=== PATIENT | female | born 2000 | race Caucasian/White ===

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

== ENCOUNTER 2019-01-24 02:32 | Emergency (ER) | payer SELFPAY, OTHER ==
[2019-01-24] MEDS: SOD CHLORIDE 0.9% 500 ML IV (03:02)
[2019-01-24 03:03] LABS: ADD MAN DIFF? NO
[2019-01-24 03:05] LABS: BASOPHIL # 0.1 10^3/ul (0.0-0.1); BASOPHILS % 0.3 % (0.0-2.0); EOSINOPHILS # 0.1 10^3/ul (0.0-0.5); EOSINOPHILS % 0.4 % (0.0-7.0); HEMATOCRIT 37.6 % (37.0-47.0); HEMOGLOBIN 12.7 g/dl (12.0-16.0); LYMPHOCYTES # 2.7 10^3/ul (0.8-2.9); LYMPHOCYTES % 13.6 % (18.0-55.0); MEAN CORPUSCULAR HEMOGLOBIN 29.3 pg (29.0-33.0); MEAN CORPUSCULAR HGB CONC 33.8 g/dl (32.0-37.0); MEAN CORPUSCULAR VOLUME 86.6 fl (72.0-104.0); MEAN PLATELET VOLUME 9.6 fl (7.4-10.4); NEUTROPHIL # 16.1 10^3/ul (1.6-7.5); NEUTROPHILS % 80.1 % (30.0-74.0); PLATELET COUNT 262 10^3/UL (140-415); RED BLOOD COUNT 4.34 10^6/ul (4.20-5.40); RED CELL DISTRIBUTION WIDTH 11.8 % (11.5-14.5)
[2019-01-24 03:05] LABS: WHITE BLOOD COUNT 20.1 10^3/ul (4.8-10.8)
[2019-01-24 03:32] LABS: ETHANOL < 10.0 mg/dl (0-0)
[2019-01-24] MEDS: SOD CHLORIDE 0.9% 1,000 ML IV (04:04)
[2019-01-24] MEDS: KETOROLAC 30 MG INJ IV (04:32)
== END 2019-01-24 05:56 | disposition home or self-care (01) ==
LOC: E/R 02:32
DX: N92.0 Excessive and frequent menstruation with regular cycle (principal); R55 Syncope and collapse; D72.829 Elevated white blood cell count, unspecified
CPT/HCPCS: 36415; 71045; 80307; 81025; 82962; 85025; 93005; 96361; 96374; 99285-25

== ENCOUNTER 2019-05-18 17:50 | Emergency (ER) | payer SELFPAY ==
[2019-05-18] MEDS: KETOROLAC 30 MG INJ IM (18:34)
[2019-05-18] MEDS: DEXAMETHASONE 10 MG/ML 1 ML INJ IM (18:34)
== END 2019-05-18 19:03 | disposition home or self-care (01) ==
LOC: FTE 19:03
DX: J02.9 Acute pharyngitis, unspecified (principal)
CPT/HCPCS: 81025; 96372; 99284-25

== ENCOUNTER 2019-05-20 03:16 | Inpatient (IN) | payer MEDICAID ==
[2019-05-20 03:37] LABS: ADD MAN DIFF? NO
[2019-05-20 03:39] LABS: BASOPHILS % 0.2 % (0.0-2.0); EOSINOPHILS % 0.1 % (0.0-7.0); HEMATOCRIT 40.9 % (37.0-47.0); HEMOGLOBIN 13.3 g/dl (12.0-16.0); LYMPHOCYTES # 2.6 10^3/ul (0.8-2.9); LYMPHOCYTES % 17.8 % (18.0-55.0); MEAN CORPUSCULAR HEMOGLOBIN 26.5 pg (29.0-33.0); MEAN CORPUSCULAR HGB CONC 32.5 g/dl (32.0-37.0); MEAN CORPUSCULAR VOLUME 81.5 fl (72.0-104.0); MEAN PLATELET VOLUME 9.5 fl (7.4-10.4); MONOCYTES % 6.9 % (0.0-13.0); NEUTROPHIL # 10.9 10^3/ul (1.6-7.5); NEUTROPHILS % 74.5 % (30.0-74.0); PLATELET COUNT 305 10^3/UL (140-415); RED BLOOD COUNT 5.02 10^6/ul (4.20-5.40); RED CELL DISTRIBUTION WIDTH 13.2 % (11.5-14.5)
[2019-05-20 03:39] LABS: WHITE BLOOD COUNT 14.6 10^3/ul (4.8-10.8)
[2019-05-20] MEDS: SODIUM CHLORIDE 0.9% 1L BAG IV* (03:40)
[2019-05-20] MEDS: KETOROLAC 15 MG INJ IV ×2 (03:40→03:57)
[2019-05-20] MEDS: DEXAMETHASONE 10 MG/ML 1 ML INJ IV ×4 (03:40→20:22)
[2019-05-20 03:48] LABS: URINE PH (Dip) POC 6.5 (5.0-8.5)
[2019-05-20 03:48] LABS: URINE BLOOD (Dip) POC 1+ (NEGATIVE); URINE GLUCOSE (Dip) POC Negative (NEGATIVE); URINE KETONES (Dip) POC Negative (NEGATIVE); URINE LEUKOCYTE EST (Dip) POC Trace (NEGATIVE); URINE NITRITE (Dip) POC Negative (NEGATIVE); URINE TOTAL PROTEIN POC Trace (NEGATIVE)
[2019-05-20] MEDS: AMPICILLIN/SULB 3 GM/NS (PMX) 100 ML IVPB ×3 (03:49→17:45)
[2019-05-20 03:56] LABS: ALANINE AMINOTRANSFERASE 19 IU/L (13-69); ALBUMIN 4.4 g/dl (3.3-4.9); ALBUMIN/GLOBULIN RATIO 0.86; ALKALINE PHOSPHATASE 70 IU/L (42-121); ANION GAP 12 (5-13); ASPARTATE AMINO TRANSFERASE 23 IU/L (15-46); BILIRUBIN,INDIRECT 0.7 mg/dl (0-1.1); BILIRUBIN,TOTAL 0.7 mg/dl (0.2-1.3); BLOOD UREA NITROGEN 14 mg/dl (7-20); CALCIUM 9.9 mg/dl (8.4-10.2); CARBON DIOXIDE 28 mmol/L (21-31); CHLORIDE 99 mmol/L (97-110); CREATININE 0.67 mg/dl (0.44-1.00); Estimated GFR > 60 mL/min (>60); GLUCOSE 119 mg/dl (70-220); POTASSIUM 3.3 mmol/L (3.5-5.1); SODIUM 139 mmol/L (135-144); TOTAL PROTEIN 9.5 g/dl (6.1-8.1)
[2019-05-20 03:59] LABS: INR 0.87; PARTIAL THROMBOPLASTIN TIME 28.4 Sec (23.0-35.0); PROTIME 11.9 Sec (11.9-14.9); PT RATIO 0.9
[2019-05-20 04:07] LABS: ADD UMIC YES; TROPONIN-I < 0.012 ng/ml (0.000-0.120); UR ASCORBIC ACID NEGATIVE (NEGATIVE); UR BILIRUBIN (Dip) NEGATIVE (NEGATIVE); UR BLOOD (Dip) 1+ mg/dL (NEGATIVE); UR CLARITY CLEAR (CLEAR); UR COLOR YELLOW (YELLOW); UR GLUCOSE (Dip) NEGATIVE (NEGATIVE); UR KETONES (Dip) NEGATIVE (NEGATIVE); UR LEUKOCYTE ESTERASE (Dip) TRACE Leu/ul (NEGATIVE); UR MUCUS FEW /HPF (NONE SEEN); UR NITRITE (Dip) NEGATIVE (NEGATIVE); UR RBC 10 /HPF (0-5); UR SQUAMOUS EPITHELIAL CELL FEW /HPF (FEW); UR TOTAL PROTEIN (Dip) NEGATIVE (NEGATIVE); UR UROBILINOGEN (Dip) 1+ mg/dL (NEGATIVE); UR WBC 8 /HPF (0-5)
[2019-05-20] MEDS: IOHEXOL 300MG/ML 150 ML BTL (04:21)
[2019-05-20] MEDS: SOD CHLORIDE 0.9% 100 ML (04:21)
[2019-05-20] MEDS ORDERED: ONDANSETRON 4 MG INJ IV (05:30)
[2019-05-20] MEDS: SOD CHLORIDE 0.9% 1,000 ML IV ×2 (05:47→20:22)
[2019-05-20] MEDS ORDERED: ACETAMINOPHEN 650 MG SUPP PR ×2 (06:00)
[2019-05-20] MEDS ORDERED: NACL 0.9% 3 ML SYG IV (06:00)
[2019-05-20 06:15] LABS: LACTIC ACID 1.1 mmol/L (0.5-2.0)
[2019-05-20] MEDS: POTASSIUM CHLORIDE 100 ML IVPB (18:50)
[2019-05-21] MEDS: AMPICILLIN/SULB 3 GM/NS (PMX) 100 ML IVPB ×4 (00:09→17:31)
[2019-05-21] MEDS: PANTOPRAZOLE 40 MG INJ IV (05:30)
[2019-05-21 05:58] LABS: ADD MAN DIFF? NO
[2019-05-21 06:15] LABS: WHITE BLOOD COUNT 12.9 10^3/ul (4.8-10.8)
[2019-05-21 06:15] LABS: BASOPHILS % 0.2 % (0.0-2.0); HEMATOCRIT 35.8 % (37.0-47.0); HEMOGLOBIN 11.5 g/dl (12.0-16.0); LYMPHOCYTES # 1.6 10^3/ul (0.8-2.9); LYMPHOCYTES % 12.5 % (18.0-55.0); MEAN CORPUSCULAR HGB CONC 32.1 g/dl (32.0-37.0); MONOCYTE # 0.7 10^3/ul (0.3-0.9); MONOCYTES % 5.2 % (0.0-13.0); NEUTROPHIL # 10.5 10^3/ul (1.6-7.5); NEUTROPHILS % 81.3 % (30.0-74.0); PLATELET COUNT 282 10^3/UL (140-415); RED BLOOD COUNT 4.26 10^6/ul (4.20-5.40); RED CELL DISTRIBUTION WIDTH 13.6 % (11.5-14.5)
[2019-05-21 06:38] LABS: ALANINE AMINOTRANSFERASE 22 IU/L (13-69); ALBUMIN 3.4 g/dl (3.3-4.9); ALBUMIN/GLOBULIN RATIO 0.89; ALKALINE PHOSPHATASE 52 IU/L (42-121); ANION GAP 8 (5-13); ASPARTATE AMINO TRANSFERASE 16 IU/L (15-46); BILIRUBIN,INDIRECT 0.5 mg/dl (0-1.1); BILIRUBIN,TOTAL 0.5 mg/dl (0.2-1.3); BLOOD UREA NITROGEN 12 mg/dl (7-20); CALCIUM 8.9 mg/dl (8.4-10.2); CARBON DIOXIDE 25 mmol/L (21-31); CHLORIDE 106 mmol/L (97-110); CREATININE 0.46 mg/dl (0.44-1.00); Estimated GFR > 60 mL/min (>60); GLUCOSE 129 mg/dl (70-220); MAGNESIUM 2.3 mg/dl (1.7-2.5); POTASSIUM 4.4 mmol/L (3.5-5.1); SODIUM 139 mmol/L (135-144); TOTAL PROTEIN 7.2 g/dl (6.1-8.1)
[2019-05-21 07:15] LABS: HEMOGLOBIN A1C 5.3 % (0-5.9)
[2019-05-21] MEDS: SOD CHLORIDE 0.9% 1,000 ML IV ×2 (17:25→19:03)
[2019-05-21] MEDS: morphine 2 MG INJ IV (17:36)
[2019-05-21] MEDS: EPINEPHrine 1 MG INJ IM (20:02)
[2019-05-21] MEDS: IOHEXOL 300MG/ML 150 ML BTL (21:11)
[2019-05-21] MEDS: SOD CHLORIDE 0.9% 100 ML (21:11)
[2019-05-21] MEDS ORDERED: MIDAZOLAM 1 MG/ML 2 ML INJ (22:19)
[2019-05-21] MEDS ORDERED: METOCLOPRAMIDE 10 MG INJ (22:19)
[2019-05-21] MEDS ORDERED: PROPOFOL 20 ML ×2 (22:24→22:56)
[2019-05-21] MEDS ORDERED: SUCCINYLCHOLINE CHLORIDE 100 MG/5 ML SYG IV (22:24)
[2019-05-21] MEDS ORDERED: FENTAnyl 50 MCG/ML VIAL (22:27)
[2019-05-21] MEDS ORDERED: HYDROmorphONE 1 MG/5 ML IV SYRINGE IV ×2 (22:30)
[2019-05-21] MEDS ORDERED: DIPHENHYDRAMINE 50 MG INJ IV (22:30)
[2019-05-21] MEDS ORDERED: FENTAnyl 50 MCG/ML VIAL IV ×3 (22:30)
[2019-05-21] MEDS: BUPIVACAINE 0.25% (MPF) 30 ML INJ (22:48)
[2019-05-21] MEDS: ONDANSETRON 4 MG INJ IV (23:17)
[2019-05-21] MEDS: MEPERIDINE 25 MG INJ IV (23:17)
[2019-05-21] MEDS: HYDROmorphONE 1 MG/5 ML IV SYRINGE IV (23:38)
[2019-05-22] MEDS: AMPICILLIN/SULB 3 GM/NS (PMX) 100 ML IVPB ×4 (00:12→17:51)
[2019-05-22] MEDS: LIDOCAINE 2% VISC 15 ML CUP PO (04:17)
[2019-05-22] MEDS: HYDROmorphONE 0.5 MG/0.5 ML SYG IV ×4 (04:18→19:34)
[2019-05-22] MEDS: PANTOPRAZOLE 40 MG INJ IV (05:04)
[2019-05-22 05:39] LABS: ADD MAN DIFF? NO
[2019-05-22 05:52] LABS: BASOPHILS % 0.1 % (0.0-2.0); HEMATOCRIT 36.1 % (37.0-47.0); HEMOGLOBIN 11.4 g/dl (12.0-16.0); LYMPHOCYTES # 2.8 10^3/ul (0.8-2.9); LYMPHOCYTES % 18.9 % (18.0-55.0); MEAN CORPUSCULAR HEMOGLOBIN 26.1 pg (29.0-33.0); MEAN CORPUSCULAR HGB CONC 31.6 g/dl (32.0-37.0); MEAN CORPUSCULAR VOLUME 82.6 fl (72.0-104.0); MEAN PLATELET VOLUME 9.5 fl (7.4-10.4); MONOCYTE # 1.4 10^3/ul (0.3-0.9); MONOCYTES % 9.6 % (0.0-13.0); NEUTROPHIL # 10.3 10^3/ul (1.6-7.5); NEUTROPHILS % 70.7 % (30.0-74.0); PLATELET COUNT 313 10^3/UL (140-415); RED BLOOD COUNT 4.37 10^6/ul (4.20-5.40); RED CELL DISTRIBUTION WIDTH 13.6 % (11.5-14.5)
[2019-05-22 05:52] LABS: WHITE BLOOD COUNT 14.5 10^3/ul (4.8-10.8)
[2019-05-22 06:09] LABS: PHOSPHORUS 3.6 mg/dl (2.5-4.9)
[2019-05-22 06:09] LABS: MAGNESIUM 1.8 mg/dl (1.7-2.5)
[2019-05-22 06:15] LABS: ANION GAP 8 (5-13); BLOOD UREA NITROGEN 11 mg/dl (7-20); CALCIUM 8.6 mg/dl (8.4-10.2); CARBON DIOXIDE 27 mmol/L (21-31); CHLORIDE 102 mmol/L (97-110); CREATININE 0.58 mg/dl (0.44-1.00); Estimated GFR > 60 mL/min (>60); GLUCOSE 100 mg/dl (70-220); POTASSIUM 3.6 mmol/L (3.5-5.1); SODIUM 137 mmol/L (135-144)
[2019-05-22] MEDS: SOD CHLORIDE 0.9% 1,000 ML IV ×2 (07:33→20:38)
[2019-05-22] MEDS: HYDROmorphONE 1 MG/ML SYG IV (23:28)
[2019-05-23] MEDS: AMPICILLIN/SULB 3 GM/NS (PMX) 100 ML IVPB ×4 (01:04→18:12)
[2019-05-23] MEDS: HYDROmorphONE 1 MG/ML SYG IV ×5 (05:13→23:59)
[2019-05-23] MEDS: FAMOTIDINE 20 MG INJ IV ×2 (08:42→20:45)
[2019-05-23] MEDS: ONDANSETRON 4 MG INJ IV (21:11)
[2019-05-23] MEDS: traMADol 50 MG TAB PO (21:11)
[2019-05-24] MEDS: AMPICILLIN/SULB 3 GM/NS (PMX) 100 ML IVPB ×3 (00:53→14:22)
[2019-05-24] MEDS: HYDROmorphONE 1 MG/ML SYG IV ×2 (04:10→10:25)
[2019-05-24] MEDS: FAMOTIDINE 20 MG INJ IV (08:34)
== END 2019-05-24 16:26 | disposition home or self-care (01) | DRG 854 ==
LOC: E/R 03:16 → 6WM 05:12
PROC: 0C9PXZZ Drainage of Tonsils, External Approach (ICD-10-PCS; principal; 2019-05-21 10:38)
PROC: 0CBPXZZ Excision of Tonsils, External Approach (ICD-10-PCS; 2019-05-21 10:38)
DX: A41.9 Sepsis, unspecified organism (principal); J36 Peritonsillar abscess
CPT/HCPCS: 36415; 70491; 71045; 80048; 80053; 81001; 81003; 81025; 83036; 83605; 83735; 84100; 84484; 85025; 85610; 85730; 87040-91; 87086; 87880; 88304; 93005; 96374; 96375; 99285-25